=== PATIENT | male | born 1965 | race African-American/Black ===

== ENCOUNTER 2017-12-09 10:04 | Emergency (ER) | payer MEDICAID ==
[~2017-12-09] VITALS: Ht 172.7 cm; Wt 80.0 kg
[2017-12-09] MEDS ORDERED: ACETAMINOPHEN 325MG TABLET PO ONE (11:00)
[2017-12-09] MEDS ORDERED: CYCLOBENZAPRINE 10MG TABLET PO ONE (11:00)
[2017-12-09 11:25] VITALS: BP 146/77
== END 2017-12-09 11:30 | disposition home or self-care (01) ==
LOC: ER 10:04
DX: M54.2 Cervicalgia (principal); M54.9 Dorsalgia, unspecified; I10 Essential (primary) hypertension; V49.9XXA Car occupant (driver) (passenger) injured in unspecified traffic accident, initial encounter; Y93.9 Activity, unspecified; Y92.410 Unspecified street and highway as the place of occurrence of the external cause
CPT/HCPCS: 99283